=== PATIENT | male | born 1965 | race Two or more races ===

== ENCOUNTER 2024-10-08 21:14 | Emergency (ER) | payer MEDICARE, MEDICAID, SELFPAY ==
[2024-10-08 21:18] VITALS: PULSE 88; RESP 18; O2SAT 97
[2024-10-08 21:21] VITALS: BMI 35.4
[2024-10-08 21:23] VITALS: BP 147/97; PULSE 69; RESP 20; RESP 22; O2SAT 93; O2SAT 97
--- NOTE | 2024-10-08 21:34 | XR_ITS ---
Examination: AP chest single view TECHNIQUE: AP portable upright chest single view Date and time: October 08, 2024 1012 hours INDICATIONS: Chest pain today FINDINGS: Mild prominence cardiac contour Median sternotomy wires. No pneumonia or pulmonary edema. Moderate osteopenia IMPRESSION: No pneumonia or pulmonary edema
--- NOTE | 2024-10-08 21:48 | EDNOTE_ITS ---
ED Dizzyness RME/HPI General Chief Complaint: Syncope / Near Syncope Stated Complaint: NEAR SYNCOPE Time Seen by Provider: 10/08/24 21:24 Arrival date/time: 10/08/24 21:14 RME / HPI RME / HPI Narrative: DR CHRISTENSEN MAIN ED EVALUATION: 59 y/o male with Hx of Atrial Fibrillation, CAD, Hypertension, and Asthma presents to ED BIBA while walking [place] [employer] reports dizziness and lightheadedness x 2 days. Reports dizziness and mild chest pain last night, to the point where he had to lay down, but became even more dizzy. Patient reports some improvement now. Patient denies vomiting or any other associated symptoms or aggravating factors. No modifying factors, no radiation, no migration. No pain reported overall. Related Data Previous Rx's ?Medication ?Instructions ?Recorded albuterol sulfate 90 mcg/actuation 2 puff inhalation Q 6H PRN 04/19/19 aerosol inhaler (Proventil HFA) shortness of breath or wheezing #8.5 grams aspirin 81 mg tablet,delayed 81 mg PO QDAY #30 tabs release (Aspir-Low) azithromycin 250 mg tablet 500 mg (2 x 250 mg) PO QDAY #5 tabs 04/19/19 guaifenesin 600 mg tablet, 600 mg PO BID #14 tabs 03/31 05/18 extended release 12 hr (Mucinex) prednisone 20 mg tablet 40 mg (2 x 20 mg) PO QDAY #1 0 tabs 04/19/19 naproxen 500 mg tablet (Naprosyn) 500 mg PO BID PRN pa in #20 tabs 10/27/23 Allergies Allergy/AdvReac Type Severity Reaction Status Date / Time No Known Allergies Allergy Verified 04/17/19 21:05 Review of Systems Review of Systems Systems Reviewed: All systems reviewed, normal except as documented Past Medical History Past Medical History CARDIAC: Positive Atrial Fibrillation, Coronary Artery Disease and Hypertension RESPIRATORY: Positive Asthma and Pneumonia Surgical History SURGICAL: Positive Open Heart Surgery (2019) and Coronary Stent (pt. states unknown how many stents) Social History OCCUPATION: street worker ED Exam Narrative Physical exam: GENERAL APPEARANCE: alert and oriented x 4, well-developed, well-nourished, no acute distress VITALS: All vitals were reviewed and the pulse ox is % on room air, which is normal according to my interpretation. HEENT: Normocephalic, atraumatic; pupils equal, round, reactive to light; EOMI; mucous membranes pink, moist; oropharynx clear NECK: Supple LUNGS: CTABL; no wheezes, no rales, no rhonchi HEART: Regular rate, regular rhythm; normal S1, S2; no murmurs ABDOMEN: non distended; normal BS; soft, no tenderness, no guarding, no rebound; no masses, no organomegaly, no hernia BACK: no CVA tenderness EXTREMITIES: atraumatic; no edema NEUROLOGIC: awake; alert and oriented x4; cranial nerves II-XII grossly intact; no focal sensory or motor deficits PSYCHIATRIC: appears anxious SKIN: warm, dry, normal color; no rashes Course Course Course Narrative: CXR is ordered for determining the etiology of chest pain. Quality Measures none Orders Category Date Time Status Pipe Stem Aligner NOW Care 10/08/24 21:34 Active EKG (ED ONLY) *Do not use* NOW Care 10/08/24 21:19 Completed EKG (ED ONLY) *Do not use* NOW Care 10/08/24 21:[address] head/brain wo con Stat Exams 10/08/24 22:59 Taken EKG (ED Only) Stat Exams 10/08/24 21:19 Ordered EKG (ED Only) Stat Exams 10/08/24 21:34 Stop Req XR chest 1V portable Stat Exams 10/08/24 21:34 Completed B-Type Natriuretic Peptide Stat Lab 10/08/24 21:35 Completed CBC Stat Lab 10/08/24 21:35 Completed Comprehensive Metabolic Panel Stat Lab 10/08/24 21:35 Completed Lipase Stat Lab 10/08/24 21:35 Completed Magnesium Stat Lab 10/08/24 21:35 Completed Partial Thromboplastin Time Stat Lab 10/08/24 21:35 Completed Prothrombin Time with INR Stat Lab 10/08/24 21:35 Completed Troponin I Stat Lab 10/08/24 21:35 Completed Vital Signs Vital signs: Vital Signs Pulse Rate 69 10/08/24 21:23 Respiratory Rate 20 10/08/24 21:23 Blood Pressure 147/97 H 10/08/24 21:23 Pulse Oximetry (%) 97 10/08/24 21:23 Oxygen Delivery Method Room Air 10/08/24 21:23 Dizziness MDM Narrative MDM Narrative:: Scribe Attestation: I, Cassidy Khalil, am scribing for and in the presence of Dr. Christensen. Provider Notation: Although this document has been carefully reviewed, there may still be some phonetic and other typographical errors.? These errors are purely grammatical due to imperfections in the software program and should not be construed in any way to? compromise the substance of the patient's medical care during this visit. Patient data External records reviewed:: [facility] previous records (Reviewed prior ED records from 10/27/23. Patient was seen for Chest pain.) and EMS form Clinical information provided by:: patient and EMS Social determinants that could affect healthcare access:: none Patient has the following chronic illnesses:: Atrial Fibrillation, Coronary Artery Disease, Hypertension, Asthma How is presenting disease/condition affected by chronic disease/condition?: exacerbated by Evaluation data The following diagnostics were reviewed and interpreted by me:: lab results, radiology exam(s) and EKG tracing(s) Lab and/or radiology exams considered but not ordered:: None Interpretation Summary: RADIOLOGY Chest X-Ray: [place] Report Signed Patient: ATUL DERAS [facility] Record#: [id number] Birthdate: 1965 Age/Sex: 59 / M Location: [facility] Attending Dr: Ordering Physician: Oam Christensen MD Date of Service: 10/08/24 Procedure(s): XR chest 1V portable Accession Number(s): [id number] cc: Torito Jones MD; NO PRIMARY/FAMILY,PHYSICIAN; Oma Christensen MD~ Examination: AP chest single view TECHNIQUE: AP portable upright chest single view Date and time: October 08, 2024 1012 hours INDICATIONS: Chest pain today FINDINGS: Mild prominence cardiac contour Median sternotomy wires. No pneumonia or pulmonary edema. Moderate osteopenia IMPRESSION: No pneumonia or pulmonary edema Dictated By: Torito Jones MD Signed By: <Electronically signed by Torito Jones MD in OV> 10/08/24 2303 [place] Preliminary Report Draft Patient: ATUL DERAS [facility]. Record#: [id number] Birthdate: 1965 Age/Sex: 59 / M Location: [facility] Attending Dr: Ordering Physician: Date of Service: Procedure(s): Accession Number(s): cc: ~ CT scan of the head without intravenous contrast (axial sections with sagittal and coronal reformats) October 09, 2024 at 0007 hours. Clinical History: Near syncope. Comparison: No prior study is available for comparison. Findings: There is no evidence of intracranial hemorrhage, mass effect or midline shift. There is mild volume loss. The calvarium is unremarkable. The mastoid air cells and the visualized paranasal sinuses are clear. Impression: No evidence of intracranial hemorrhage, mass effect or midline shift. Mild volume loss. Report Electronically Signed By: Giancarlo Flores 10/09/2024 12:57:45 AM [EST] EKG done at 2119, aFib, rate of 79, artifact, LBBB, no STEMI, according to my interpretation. Medications / Prescriptions Medications or Prescriptions considered but not ordered:: None Medication administrations:: See above if any. Consultations Consultation(s) initiated? (list below): No Diagnosis Dizziness Differential Diagnosis: benign paroxysmal positional vertigo, orthostatic hypotension, vertebral basilar insufficiency, cerebrovascular accident, acute vestibular neuronitis, transient cerebral ischemia and other (Vertigo, Migraine) Most likely diagnosis given after review of the tests above:: see clinical impression below Admission Indicated Admission indicated?: not indicated Admission Request Was there a request for admission?: No Disposition Plan Disposition Plan: Discharge Discharge Attestation Discharge Attestation: The patient and all family members were given an opportunity to ask questions and understood the discharge instructions. Discharge instructions specifically effects, indications for sooner follow up or return to the emergency department, and the expected course of current diagnosis. Patient condition: Stable Discharge Plan Plan Patient Disposition: HOME (Self Care) Prescriptions/Referrals Prescriptions/Med Rec: No Action albuterol sulfate [Proventil HFA] 90 mcg/actuation HFA aerosol inhaler 2 puff INH Q6H PRN (Reason: shortness of breath or wheezing) Qty: 8.5 0RF azithromycin 250 mg Tablet 500 mg PO QDAY Qty: 5 0RF aspirin [Aspir-Low] 81 mg Tablet,Delayed Release (Dr/Ec) 81 mg PO QDAY Qty: 30 0RF guaifenesin [Mucinex] 600 mg Tablet Extended Release 12hr 600 mg PO BID Qty: 14 0RF prednisone 20 mg tablet 40 mg PO QDAY Qty: 10 0RF naproxen [Naprosyn] 500 mg tablet 500 mg PO BID PRN (Reason: pain) Qty: 20 0RF Referrals: No Primary/Family,Physician [Primary Care Provider] - In 1 week Problem List Clinical Impression: Near syncope Patient/Caregiver Discharge Instructions Education Materials: ED Near-Fainting, Uncertain Cause Print Language: Belarusian Stand Alone Forms: [employer] Award Info., Patient Portal Info Letter
[2024-10-08 21:50] VITALS: PULSE 87
[2024-10-08 21:59] LABS: Basophils # (Auto) 0.1 Thou/mm3 (0.0-0.2); Basophils % (Auto) 1 % (0-2.5); Eosinophils # (Auto) 0.2 Thou/mm3 (0.0-0.5); Eosinophils % (Auto) 3 % (0-10); Hematocrit 44.9 % (41.0-53.0); Immature Granulocytes % (Auto) 1 % (0-0); Immature Granulocytes Auto 0.03 Thou/mm3 (0.00-0.00); Lymphocytes # (Auto) 2.1 Thou/mm3 (1.0-4.8); Lymphocytes % (Auto) 32 % (10-50); Mean Corpuscular HGB Conc 35.6 g/dl (31.0-37.0); Mean Corpuscular Hemoglobin 33.9 pg (25.0-35.0); Mean Corpuscular Volume 95 fL (80-100); Monocytes # (Auto) 0.6 Thou/mm3 (0.0-0.8); Monocytes % (Auto) 9 % (0-12); Neutrophils # (Auto) 3.6 Thou/mm3 (1.8-7.7); Neutrophils % (Auto) 54 % (37-80); Nucleated Red Blood Cell % 0 /100 WBC (0); Platelet Count 228 Thou/mm3 (140-440); RDW Standard Deviation 41.5 fL (35.1-43.9); Red Blood Count 4.72 Miln/mm3 (4.50-5.90); White Blood Count 6.6 Thou/mm3 (3.8-10.6)
[2024-10-08 22:16] LABS: B-Type Natriuretic Peptide 102 pg/mL (0-100); INR 2.4 (0.9-1.3); Partial Thromboplastin Time 36.7 Seconds (22.0-36.0); Prothrombin Time 24.7 Seconds (9.0-12.2)
[2024-10-08 22:17] LABS: Anion Gap 12 (7-16); Blood Urea Nitrogen 16 mg/dL (9-23); Carbon Dioxide 22.3 mMol/L (20.0-31.0); Chloride 101 mMol/L (98-107); Potassium 3.7 mMol/L (3.4-5.1); Sodium 135 mMol/L (136-145)
[2024-10-08 22:18] LABS: Alanine Aminotransferase 30 U/L (10-49); Albumin, Serum 4.4 gm/dL (3.5-5.0); Albumin/Globulin Ratio 1.7 (1.2-2.2); Alkaline Phosphatase 83 U/L (46-116); BUN/Creatinine Ratio 16 Ratio (12-20); Bilirubin,Total 1.2 mg/dL (0.3-1.2); Calcium 9.2 mg/dL (8.3-10.6); Calcium (Corrected) 9.2 mg/dL (8.5-10.1); Estimated Creatinine Clearance 105.2 mL/min (>60); Globulin 2.6 gm/dL (2.3-3.5); Glucose 150 mg/dL (74-106); Lipase 36 U/L (12-53); Magnesium 1.8 mg/dL (1.6-2.6); Osmolality,Calculated 274 (275-295); Troponin I < 0.020 ng/mL (0.0-0.045); eGFR > 60 See Note
--- NOTE | 2024-10-08 22:59 | XR_ITS ---
Examination: CT brain head without contrast. 2-D sagittal coronal reconstructions Date and time of exam:October 09, 2024 0007 hours INDICATION: Near syncopal episode today 53.6 CTDI: vol (mGy):53.6 DLP: (mGycm):1123 Technique: Multiple CT axial sections of the brain have been obtained, 5 mm slice thickness. Contrast has not been administered. 2-D sagittal, coronal reconstructions have been obtained Low dose protocols were performed. One or more of the following dose reduction techniques were used; automated exposure control, adjustment of the mA and/or KV according to patient size, use of iterative reconstruction technique. Findings: No significant ventricular enlargement. Intra-axial or extra-axial hemorrhage density is not seen. No mass effect or midline shift Basal cisterns are not remarkable. Fourth ventricle is midline. Cranial vault intact. Impression: Negative for acute hemorrhage, mass effect or midline shift
[2024-10-08 23:18] VITALS: BP 147/97; PULSE 82; RESP 19; TEMP 36.9; O2SAT 97
--- NOTE | 2024-10-09 00:06 | PC.NURSE ---
pt taken to ct
--- NOTE | 2024-10-09 00:58 | PRELIM_ITS ---
CT scan of the head without intravenous contrast (axial sections with sagittal and coronal reformats) October 09, 2024 at 0007 hours. Clinical History: Near syncope. Comparison: No prior study is available for comparison. Findings: There is no evidence of intracranial hemorrhage, mass effect or midline shift. There is mild volume loss. The calvarium is unremarkable. The mastoid air cells and the visualized paranasal sinuses are clear. Impression: No evidence of intracranial hemorrhage, mass effect or midline shift. Mild volume loss. Report Electronically Signed By: Giancarlo Flores 10/09/2024 12:57:45 AM [EST]
[2024-10-09 02:01] VITALS: BP 147/106; PULSE 76; RESP 23; O2SAT 95
[2024-10-09 03:00] VITALS: BP 122/95; PULSE 72; RESP 17; O2SAT 95
--- NOTE | 2024-10-09 03:09 | PC.NURSE ---
pt awake and alert. states he is feeling better.
[2024-10-09 04:00] VITALS: BP 155/101; PULSE 62; RESP 18; O2SAT 95
--- NOTE | 2024-10-09 04:04 | PC.NURSE ---
pt resting quietly. waiting for md review.
[2024-10-09 05:00] VITALS: BP 135/83; PULSE 66; RESP 16; O2SAT 94
[2024-10-09 06:03] VITALS: BP 134/108; PULSE 75; RESP 18; O2SAT 95
== END 2024-10-09 06:05 | disposition home or self-care (01) ==
PROVIDERS: Emergency Provider Emergency Medicine
DX: R55 Syncope and collapse (principal); I48.91 Unspecified atrial fibrillation; I45.89 Other specified conduction disorders; R07.9 Chest pain, unspecified; I10 Essential (primary) hypertension; I25.10 Atherosclerotic heart disease of native coronary artery without angina pectoris; Z95.5 Presence of coronary angioplasty implant and graft
CPT/HCPCS: 36415; 70450; 71045; 80053; 83690; 83735; 83880; 84484; 85025; 85610; 85730; 93005; 99284